=== PATIENT | male | born 2000 | race Two or more races ===

== ENCOUNTER 2024-01-24 15:10 | Emergency (ER) | payer BC ==
[~2024-01-24] VITALS: Ht 170.2 cm; Wt 74.8 kg
[2024-01-24] MEDS ORDERED: MIRALAX510 GM PO (15:58)
== END 2024-01-24 22:12 | disposition home or self-care (01) ==
LOC: ER 15:11
DX: S00.93XA Contusion of unspecified part of head, initial encounter (principal); S30.0XXA Contusion of lower back and pelvis, initial encounter; S20.20XA Contusion of thorax, unspecified, initial encounter; S60.222A Contusion of left hand, initial encounter; S50.02XA Contusion of left elbow, initial encounter; W17.89XA Other fall from one level to another, initial encounter; Y93.89 Activity, other specified; Y92.838 Other recreation area as the place of occurrence of the external cause; Y99.9 Unspecified external cause status